=== PATIENT | female | born 1970 | race Caucasian/White ===

== ENCOUNTER → 2024-02-29 12:42 | Outpatient (REF) | payer BC, SELFPAY | LOC: WDC 12:42 | PROVIDERS: ATTENDING PHYSICIAN Family Medicine | DX: R92.2 Inconclusive mammogram (principal) | CPT/HCPCS: 76641 ==

== ENCOUNTER → 2025-03-24 08:43 | Outpatient (REF) | payer BC, SELFPAY | LOC: HWWDC 08:43 | PROVIDERS: ATTENDING PHYSICIAN Family Medicine | DX: Z12.31 Encounter for screening mammogram for malignant neoplasm of breast (principal); E04.1 Nontoxic single thyroid nodule | CPT/HCPCS: 76536; 77063; 77067 ==

== ENCOUNTER → 2025-06-03 07:28 | Outpatient (REF) | payer BC, SELFPAY ==
[2025-06-03 07:37] VITALS: BP 140/87; BP_SYST 71
== END ==
LOC: RADI 07:28
PROVIDERS: ATTENDING PHYSICIAN Family Medicine
DX: E04.1 Nontoxic single thyroid nodule (principal)
CPT/HCPCS: 10005; 88173

== ENCOUNTER → 2025-10-02 14:01 | Outpatient (REF) | payer BC, SELFPAY | LOC: WDC 14:01 | PROVIDERS: ATTENDING PHYSICIAN Family Medicine | DX: R92.2 Inconclusive mammogram (principal) | CPT/HCPCS: 76641 ==